=== PATIENT | female | born 1990 | race Two or more races ===

== ENCOUNTER 2018-12-15 16:02 | Emergency (ER) | payer MEDICAID, OTHER ==
[~2018-12-15] VITALS: Ht 157.5 cm; Wt 69.9 kg
[2018-12-15 16:14] VITALS: BP 116/71
== END 2018-12-15 18:09 | disposition home or self-care (01) ==
LOC: ER 16:02
DX: S83.91XA Sprain of unspecified site of right knee, initial encounter (principal); Z88.0 Allergy status to penicillin; V43.52XA Car driver injured in collision with other type car in traffic accident, initial encounter; Y93.89 Activity, other specified; Y92.410 Unspecified street and highway as the place of occurrence of the external cause; Y99.8 Other external cause status
CPT/HCPCS: 73562; 81025

== ENCOUNTER 2019-01-18 10:17 | Emergency (ER) | payer MEDICAID ==
[~2019-01-18] VITALS: Ht 157.5 cm; Wt 68.0 kg
[2019-01-18 10:32] VITALS: BP 124/80
[2019-01-18 12:44] LABS: Urine Bacteria FEW /hpf (None Seen); Urine Blood Negative /uL (Negative); Urine Mucus FEW (None Seen); Urine Specific Gravity 1.018 (1.001-1.035); Urine WBC 43 /hpf (0 - 5)
== END 2019-01-18 12:53 | disposition home or self-care (01) ==
LOC: ER 10:17
DX: N39.0 Urinary tract infection, site not specified (principal); Z88.0 Allergy status to penicillin
CPT/HCPCS: 81001

== ENCOUNTER 2019-02-16 11:09 | Emergency (ER) | payer MEDICAID ==
[~2019-02-16] VITALS: Ht 162.6 cm; Wt 68.0 kg
[2019-02-16 11:16] VITALS: BP 155/83
== END 2019-02-16 12:23 | disposition home or self-care (01) ==
LOC: ER 11:09
DX: S90.32XA Contusion of left foot, initial encounter (principal); Z88.0 Allergy status to penicillin; W51.XXXA Accidental striking against or bumped into by another person, initial encounter; Y93.89 Activity, other specified; Y92.520 Airport as the place of occurrence of the external cause; Y99.8 Other external cause status
CPT/HCPCS: 73630

== ENCOUNTER 2019-03-23 20:09 | Emergency (ER) | payer MEDICAID ==
[~2019-03-23] VITALS: Ht 157.5 cm; Wt 70.3 kg
[2019-03-23 20:54] VITALS: BP 116/68
== END 2019-03-23 22:46 | disposition left against medical advice (07) ==
LOC: ER 20:09
DX: R07.89 Other chest pain (principal); Z53.21 Procedure and treatment not carried out due to patient leaving prior to being seen by health care provider
CPT/HCPCS: 93005